=== PATIENT | male | born 1965 | race Caucasian/White ===

== ENCOUNTER 2023-12-22 10:08 | Emergency (ER) | payer OTHER ==
[~2023-12-22] VITALS: Ht 170.2 cm; Wt 71.8 kg
[2023-12-22 10:21] VITALS: BP 107/76; PULSE 87; RESP 18; TEMP 97.7; O2SAT 98
== END 2023-12-22 11:03 | disposition home or self-care (01) ==
LOC: MED 10:08
DX: H11.31 Conjunctival hemorrhage, right eye (principal); E11.9 Type 2 diabetes mellitus without complications; I10 Essential (primary) hypertension; E78.5 Hyperlipidemia, unspecified
CPT/HCPCS: 99281

== ENCOUNTER 2024-02-08 05:28 | Emergency (ER) | payer OTHER ==
[~2024-02-08] VITALS: Ht 170.2 cm; Wt 71.2 kg
[2024-02-08 05:34] VITALS: BP 142/93; PULSE 73; RESP 16; TEMP 98; O2SAT 98
[2024-02-08 06:21] VITALS: BP 145/103; PULSE 77; RESP 16; TEMP 98.1; O2SAT 99
[2024-02-08] MEDS: KETOROLAC 30 MG/ML VIAL IM ONE (06:25)
[2024-02-08] MEDS: CYCLOBENZAPRINE 10 MG TAB PO ONE (07:06)
[2024-02-08] MEDS ORDERED: CYCL10TA33 PO (07:20)
[2024-02-08] MEDS ORDERED: IBUP-1842 PO (07:20)
[2024-02-08] MEDS ORDERED: CYCL-654 PO (07:34)
[2024-02-08] MEDS ORDERED: IBUP-2230 PO (07:34)
== END 2024-02-08 07:34 | disposition home or self-care (01) ==
LOC: MED 05:28
DX: R07.81 Pleurodynia (principal); R07.89 Other chest pain; E11.9 Type 2 diabetes mellitus without complications; I10 Essential (primary) hypertension
CPT/HCPCS: 71101; 71250; 96372; 99285; J1885